=== PATIENT | female | born 1955 ===

== ENCOUNTER → 2016-07-14 | Outpatient (CLI) | payer BC ==
[2016-07-14 15:51] LABS: BASO % 0.4 %; BASO ABS # 0.04 K/uL (0-0.2); COMPLETE YES; EOS % 1.7 %; HEMATOCRIT 37.1 % (37-47); IG% 0.2 %; LYMPH % 33.6 %; LYMPH ABS # 3.05 K/uL (1.2-3.4); MEAN CELL VOLUME 84.3 fL (80-100); MEAN CORPUSCULAR HEMOGLOBIN 29.5 pg (25-34); MEAN PLATELET VOLUME 11.1 fL (7.4-10.4); MONO % 5.7 %; NEUT % 58.4 %; PLATELET COUNT 303 K/uL (130-400); WHITE BLOOD COUNT 9.09 K/uL (4.8-10.8)
[2016-07-14 16:21] LABS: IMMUNOGLOBULN M 27.9 mg/dL (40-230)
== END | disposition home or self-care (01) ==
LOC: C.LAB 14:55
PROVIDERS: ATTEND Specialist
DX: J45.30 Mild persistent asthma, uncomplicated (principal); J30.89 Other allergic rhinitis